=== PATIENT | female | born 1940 | race Caucasian/White ===

== ENCOUNTER 2017-03-03 11:36 | Emergency (ER) | payer OTHER ==
[~2017-03-03] VITALS: Ht 165.1 cm; Wt 68.6 kg
[~2017-03-03 11:36] MED LIST: CELE100 PO; CEPH500C3 PO; DICY1TAB26 PO; FLUO40CA PO; FURO20TA PO; HYDR10TA16 PO; PHEN12.5 PO; PHEN12.5 PR; PRIL20CA PO; SPIR50TA21 PO; SYNT88TA PO; XANA1TAB6 PO
[2017-03-03 11:38] VITALS: BP 133/66; PULSE 60; RESP 18; TEMP 97.5; O2SAT 98
--- NOTE | 2017-03-03 11:48 | PD ---
HPI Chief Complaint: Musculoskeletal Complaint Time Seen by Provider: 11:46 Travel History International Travel<30 days: No Contact w/Intl Traveler<30days: No Traveled to known affect area: No History of Present Illness HPI 76-year-old female presents the emergency department with ongoing right shoulder pain. Patient states she fell a week ago after tripping on the carpet and falling forward injuring her right shoulder. States her right shoulder pain continues which is why she is here today. Patient states it was improving and then she rolled in bed and the pain worsened in the last several days. Patient has not been taking anything for it. Patient denies neck pain, or numbness in the right arm. She does have a history of C5 6 fusion. She states the pain is localized in the shoulder joint and scapular region. Patient states she had a similar episode approximately 3-4 years ago which showed no break but she did wear a sling for approximately 6 weeks. She saw orthopedic in [facility]. Patient is allergic to codeine, and morphine. PFSH Past Medical History ?: Not Past Surgical History Cholecystectomy: Yes Hysterectomy: Yes Neurologic Surgery: Yes (RIGHT ARM NERVE SURGERY) Other Surgery: Yes (VEIN STRIPPING) Social History Alcohol Use: No Tobacco Use: No Substance Use: No Allergies-Medications (Allergen,Severity, Reaction): Coded Allergies: Codeine (Verified Allergy, Severe, ABDOMINAL PAIN, 03/03/17) Morphine (Verified Allergy, Severe, ABDOMINAL PAIN, 03/03/17) Reported Meds & Prescriptions Reported Meds & Active Scripts Active Reported Vitamin D (Cholecalciferol) 1,000 Unit Tab 1,000 Units PO DAILY Centrum Adults (Multiple Vitamins W/ Minerals) 1 Tab 1 Tab PO DAILY Ocuvite (Multiple Vitamins W/ Minerals) 1 Tab 1 Tab PO DAILY Xanax (Alprazolam) 1 Mg Tab 1 Mg PO HS PRN Calcium 500 +D (Calcium Carbonate-Cholecalciferol) 500-400 Mg-Unit Tab 1 Tab PO DAILY Spironolactone 50 Mg Tab 50 Mg PO DAILY Fluoxetine (Fluoxetine HCl) 40 Mg Cap 40 Cap PO DAILY Prilosec (Omeprazole) 20 Mg Cap 20 Mg PO DAILY Review of Systems Except as stated in HPI: all other systems reviewed are Neg General / Constitutional: No: Fever Eyes: No: Visual changes HENT: No: Headaches Cardiovascular: No: Chest Pain or Discomfort Respiratory: No: Shortness of Breath Gastrointestinal: No: Abdominal Pain Genitourinary: No: Dysuria Musculoskeletal: Positive: Arthralgias, Limited ROM, Pain Skin: No Rash Neurologic: No: Weakness Psychiatric: No: Depression Endocrine: No: Polydipsia Hematologic/Lymphatic: No: Easy Bruising Physical Exam Narrative GENERAL: Patient appears in mild distress. SKIN: Warm and dry. Normal color. Normal turgor. No ecchymosis. No rash. No other signs of trauma. HEAD: Atraumatic. Normocephalic. EYES: Pupils equal and round. No scleral icterus. No injection or drainage. ENT: No nasal bleeding or discharge. Mucous membranes pink and moist. Pharynx is normal. NECK: Trachea midline. No JVD. No bony tenderness or step-off. Range of motion is full and nontender. CARDIOVASCULAR: Regular rate and rhythm. RESPIRATORY: No accessory muscle use. Clear to auscultation. Breath sounds equal bilaterally. MUSCULOSKELETAL: Extremities without clubbing, cyanosis, or edema. No obvious deformities. The right shoulder appears normal without obvious deformity or effusion. Patient does have limited range of motion secondary to pain. Patient is able to raise the shoulder up with assistance and hold it there. No point bony tenderness with palpation. External and internal rotation is limited secondary to pain. NEUROLOGICAL: Awake and alert. No obvious cranial nerve deficits. Motor grossly within normal limits. Five out of 5 muscle strength in the arms and legs. Normal speech. PSYCHIATRIC: Appropriate mood and affect; insight and judgment normal. Data Data Last Documented VS Vital Signs Date Time Temp Pulse Resp B/P Pulse Ox O2 Delivery O2 Flow Rate FiO2 03/03/17 11:38 97.5 60 18 133/66 98 Orders Shoulder, Complete (>2vws) (03/03/17 11:53) Ice/Cold Pack (03/03/17 11:53) [facility] Medical Decision Making Medical Screen Exam Complete: Yes Emergency Medical Condition: Yes Medical Record Reviewed: Yes Differential Diagnosis Fall. Right shoulder sprain. Rotator cuff tendinitis. Bursitis. Fracture. Dislocation. Narrative Course Patient is medically stable at time of exam. X-rays of the right shoulder ordered. X-ray show no acute fracture or dislocation per radiologist. Patient will be treated for bursitis/rotator cuff tendinitis with prednisone 20 mg twice a day 7 days. Patient is also given Norflex 100 mg twice a day when necessary muscle spasm # 10. Patient is also given tramadol 50 mg one every 6 hours when necessary pain #20. Recommend heat followed by ice and follow-up with her primary care physician in the next week to ensure improvement. Patient may need orthopedic follow-up if symptoms continue or worsen. Diagnosis Primary Impression: Right shoulder tendinitis Additional Impression: Right shoulder strain Qualified Code: S46.911A - Right shoulder strain, initial encounter Referrals: Primary Care Physician 1 week Patient Instructions: Exercises for Internal and External Shoulder Rotation ( GEN), Exercises for Shoulder Abduction and Adduction (GEN), Exercises for Shoulder Flexion and Extension (ED), General Instructions, Rotator Cuff Tendinitis (ED), Shoulder Sprain (ED) Additional Instructions: X-ray show no acute fracture or dislocation per radiologist. Patient will be treated for bursitis/rotator cuff tendinitis with prednisone 20 mg twice a day 7 days. Patient is also given Norflex 100 mg twice a day when necessary muscle spasm # 10. Patient is also given tramadol 50 mg one every 6 hours when necessary pain #20. Recommend heat followed by ice and follow-up with her primary care physician in the next week to ensure improvement. Patient may need orthopedic follow-up if symptoms continue or worsen. Med/Other Pt SpecificInfo: Prescription(s) given Disposition: 01 DISCHARGE HOME Condition: Stable Yury Ellis Mar 03, 2017 11:48
[2017-03-03] MEDS ORDERED: PRIL20CA9 PO (11:56)
[2017-03-03] MEDS ORDERED: VITA100064 PO (11:56)
[2017-03-03] MEDS ORDERED: FLUO40CA PO (11:56)
[2017-03-03] MEDS ORDERED: XANA1TAB2 PO (11:56)
[2017-03-03] MEDS ORDERED: OCUVTAB PO (11:56)
[2017-03-03] MEDS ORDERED: CENTTAB8 PO (11:56)
[2017-03-03] MEDS ORDERED: CALC1TAB12 PO (11:56)
[2017-03-03] MEDS ORDERED: SPIR50TA PO (11:56)
--- NOTE | 2017-03-03 12:30 | RADHPO ---
EXAM DATE/TIME: 03/03/2017 12:05 [facility] COMPARISON: No previous studies available for comparison. INDICATIONS : Right shoulder pain; fall 1 week ago. Feels cracking and popping in shoulder. MEDICAL HISTORY : Hypertension. Gastroesophageal reflux disease. SURGICAL HISTORY : Cholecystectomy. Hysterectomy. Cervical spine surgery. Right arm nerve surtery. Vein stripping ENCOUNTER: Initial ACUITY: 1 week PAIN SCORE: 10/10 LOCATION: Right shoulder FINDINGS: Multiple view examination of the right shoulder demonstrates no evidence of fracture or dislocation. The glenohumeral and acromioclavicular joints are maintained. There is normal range of motion betwe en internal and external rotation. Bony mineralization is normal. CONCLUSION: Negative trauma study. Foster Fischer MD on March 03, 2017 at 12:27 Board Certified Radiologist. This report was verified electronically.
[2017-03-03] MEDS ORDERED: TRAM50TA PO (12:37)
[2017-03-03] MEDS ORDERED: PRED20 PO (12:37)
[2017-03-03] MEDS ORDERED: ORPH100T99 PO (12:37)
[2017-03-03] MEDS ORDERED: traMADol HCL 50 MG TAB PO ONE (13:00)
== END 2017-03-03 13:25 | disposition home or self-care (01) ==
LOC: PHEFT 11:36
DX: S46.911A Strain of unspecified muscle, fascia and tendon at shoulder and upper arm level, right arm, initial encounter (principal); W01.0XXA Fall on same level from slipping, tripping and stumbling without subsequent striking against object, initial encounter; Y93.9 Activity, unspecified; Y92.9 Unspecified place or not applicable
CPT/HCPCS: 73030; 99283

== ENCOUNTER 2017-04-09 12:16 | Emergency (ER) | payer OTHER ==
[~2017-04-09] VITALS: Ht 167.6 cm; Wt 67.7 kg
[~2017-04-09 12:16] MED LIST changes: +CALC1TAB12 PO; -CELE100 PO; +CENTTAB8 PO; -CEPH500C3 PO; -DICY1TAB26 PO; -FURO20TA PO; -HYDR10TA16 PO; +OCUVTAB PO; +ORPH100T99 PO; -PHEN12.5 PO; -PHEN12.5 PR; +PRED20 PO; -PRIL20CA PO; +PRIL20CA9 PO; +SPIR50TA PO; -SPIR50TA21 PO; -SYNT88TA PO; +TRAM50TA PO; +VITA100064 PO; +XANA1TAB2 PO; -XANA1TAB6 PO
[2017-04-09 12:26] VITALS: BP 152/79; PULSE 81; RESP 16; TEMP 98.1; O2SAT 98
[2017-04-09] MEDS ORDERED: OMEP20TA PO (12:42)
[2017-04-09] MEDS ORDERED: CALCTAB80 PO (12:42)
--- NOTE | 2017-04-09 13:28 | PD ---
HPI Chief Complaint: Fall Time Seen by Provider: 12:41 Travel History International Travel<30 days: No Contact w/Intl Traveler<30days: No Traveled to known affect area: No History of Present Illness HPI This is a 77 year-old woman who presents emergent complaining of a trip and fall about 10 days ago. States she tripped over a cord. No LOC. She states afterwards girl little bit before she felt right. Since in she's had pain in her left shoulder, and she's had worsening headache, with mental slowing, some dizziness, and she feels like her hearing in her right ear is in quite right. She also fallen a week or so before this. States she just really hasn't felt well over the past several weeks. No other recent illness or injury. No other specific symptoms. No other complaints. History Past Medical History Narrative Medical Hypertension Depression/anxiety Menopausal: Yes Social History Alcohol Use: No Tobacco Use: No Allergies-Medications (Allergen,Severity, Reaction): Coded Allergies: Codeine (Verified Allergy, Severe, ABDOMINAL PAIN, 04/09/17) Morphine (Verified Allergy, Severe, ABDOMINAL PAIN, 04/09/17) Reported Meds & Prescriptions Reported Meds & Active Scripts Active Reported Calcium 1000 + D (Calcium Carbonate-Cholecalciferol) 1,000-800 Mg-Unit Tab 1 Tab PO DAILY Omeprazole 20 Mg Tab 20 Mg PO DAILY Vitamin D (Cholecalciferol) 1,000 Unit Tab 1,000 Units PO DAILY Ocuvite (Multiple Vitamins W/ Minerals) 1 Tab 1 Tab PO DAILY Xanax (Alprazolam) 1 Mg Tab 1 Mg PO HS PRN Spironolactone 50 Mg Tab 1.5 Tab PO DAILY Fluoxetine (Fluoxetine HCl) 40 Mg Cap 40 Cap PO DAILY Review of Systems Except as stated in HPI: all other systems reviewed are Neg Physical Exam Narrative GENERAL: Well-appearing 77 year-old woman, no acute distress. SKIN: Focused skin assessment warm/dry. HEAD: Atraumatic. Normocephalic. EYES: Pupils equal and round. No scleral icterus. No injection or drainage. ENT: No nasal bleeding or discharge. Mucous membranes pink and moist. There is a healing contusion over the left brow. TMs are normal. NECK: Trachea midline. No midline tenderness. Full range of motion. CARDIOVASCULAR: Regular rate and rhythm. No murmur appreciated. RESPIRATORY: No accessory muscle use. Clear to auscultation. Breath sounds equal bilaterally. GASTROINTESTINAL: Abdomen soft, non-tender, nondistended. Hepatic and splenic margins not palpable. MUSCULOSKELETAL: No obvious deformities. No edema. She has limited range of motion the right shoulder from previous injuries. She has full range of motion of the left shoulder. No obvious bony tenderness. She moves his shoulder freely. NEUROLOGICAL: Awake and alert. No obvious cranial nerve deficits. Motor grossly within normal limits. Normal speech. Data Data Last Documented VS Vital Signs Date Time Temp Pulse Resp B/P Pulse Ox O2 Delivery O2 Flow Rate FiO2 04/09/17 12:26 98.1 81 16 152/[address] Brain W/O Iv Contrast(Rout) (04/09/17 ) Complete Blood Count With Diff (04/09/17 13:09) Comprehensive Metabolic Panel (04/09/17 13:09) Urinalysis - C+S If Indicated (04/09/17 13:09) Iv Access Insert/Monitor (04/09/17 13:09) Acetaminophen (Tylenol) (04/09/17 14:00) Labs Laboratory Tests Test 04/09/17 04/09/17 13:29 15:55 White Blood Count 10.0 TH/MM3 Red Blood Count 4.71 MIL/MM3 Hemoglobin 14.2 GM/DL Hematocrit 41.7 % Mean Corpuscular Volume 88.5 FL Mean Corpuscular Hemoglobin 30.1 PG Mean Corpuscular Hemoglobin 34.0 % Concent Red Cell Distribution Width 12.5 % Platelet Count 327 TH/MM3 Mean Platelet Volume 8.5 FL Neutrophils (%) (Auto) 76.4 % Lymphocytes (%) (Auto) 16.2 % Monocytes (%) (Auto) 6.1 % Eosinophils (%) (Auto) 0.8 % Basophils (%) (Auto) 0.5 % Neutrophils # (Auto) 7.7 TH/MM3 Lymphocytes # (Auto) 1.6 TH/MM3 Monocytes # (Auto) 0.6 TH/MM3 Eosinophils # (Auto) 0.1 TH/MM3 Basophils # (Auto) 0.0 TH/MM3 CBC Comment DIFF FINAL Differential Comment Sodium Level 140 MEQ/L Potassium Level 3.8 MEQ/L Chloride Level 105 MEQ/L Carbon Dioxide Level 29.4 MEQ/L Anion Gap 6 MEQ/L Blood Urea Nitrogen 31 MG/DL Creatinine 1.20 MG/DL Estimat Glomerular Filtration 44 ML/MIN Rate Random Glucose 119 MG/DL Calcium Level 10.3 MG/DL Total Bilirubin 0.4 MG/DL Aspartate Amino Transf 22 U/L (AST/SGOT) Alanine Aminotransferase 36 U/L (ALT/SGPT) Alkaline Phosphatase 65 U/L Total Protein 7.8 GM/DL Albumin 3.9 GM/DL Urine Color YELLOW Urine Turbidity CLEAR Urine pH 6.0 Urine Specific [place] 1.022 Urine Protein NEG mg/dL Urine Glucose (UA) NEG mg/dL Urine Ketones NEG mg/dL Urine Occult Blood NEG Urine Nitrite NEG Urine Bilirubin NEG Urine Leukocyte Esterase SMALL Urine RBC 0-3 /hpf Urine WBC 3-5 /hpf Urine Squamous Epithelial 0-5 /hpf Cells Urine Amorphous Sediment FEW Urine Mucus FEW /lpf Microscopic Urinalysis Comment CULT NOT INDICATED MDM Medical Decision Making Medical Screen Exam Complete: Yes Emergency Medical Condition: Yes Interpretation(s) LABS: CBC is unremarkable. CMP is unremarkable. BUN and creatinine are elevated. UA negative. CT head: No acute findings. Differential Diagnosis Concussion, ICH or subdural, infection, electrolyte abnormality, other Narrative Course Medical decision making 77 year-old woman, Atrovent fall about 10 days ago, with persistent dizziness and feeling poorly. She had some left shoulder pain. I don't think she broke it. I don't think she needs x-rays. We'll check a CT of her head. She had a previous fall before this and overall hasn't been feeling well for the past several days. She has frequent urination. We'll check labs and urine. Reassess. Diagnosis Primary Impression: Shoulder pain Additional Impression: Headache Additional Instructions: Use caution to prevent falls. Return to the emergency department any new or worsening symptoms. Disposition: 01 DISCHARGE HOME Condition: Stable Omar Barrientos MD Apr 09, 2017 13:28
[2017-04-09 13:33] LABS: AUTOMATED NEUTROPHIL # 7.7 TH/MM3 (1.8-7.7); BASOPHIL % 0.5 % (0.0-2.0); EOSINOPHIL # 0.1 TH/MM3 (0-0.4); EOSINOPHIL % 0.8 % (0.0-4.0); HEMATOCRIT 41.7 % (35.0-46.0); LYMPH % 16.2 % (9.0-44.0); LYMPHOCYTE # 1.6 TH/MM3 (1.0-4.8); MEAN CELL VOLUME 88.5 FL (80.0-100.0); MEAN CORPUSCULAR HEMOGLOBIN 30.1 PG (27.0-34.0); MONO % 6.1 % (0.0-8.0); NEUT % 76.4 % (16.0-70.0); PLATELET COUNT 327 TH/MM3 (150-450); RED BLOOD COUNT 4.71 MIL/MM3 (4.00-5.30); RED CELL DISTRIBUTION WIDTH 12.5 % (11.6-17.2)
[2017-04-09 13:39] LABS: HEMO FLAGS DIFF FINAL
[2017-04-09 13:41] LABS: CHLORIDE 105 MEQ/L (98-107); POTASSIUM 3.8 MEQ/L (3.5-5.1); SODIUM (NA) 140 MEQ/L (136-145)
[2017-04-09 13:45] LABS: ANION GAP 6 MEQ/L (5-15); BICARBONATE 29.4 MEQ/L (21.0-32.0); BLOOD UREA NITROGEN 31 MG/DL (7-18)
[2017-04-09 13:48] LABS: ALT (GPT) 36 U/L (10-53); AST (GOT) 22 U/L (15-37); GLOMERULAR FILTRATION RATE 44 ML/MIN (>89)
[2017-04-09 13:50] LABS: TOTAL BILIRUBIN ADULT 0.4 MG/DL (0.2-1.0)
[2017-04-09 13:51] LABS: ALKALINE PHOSPHATASE 65 U/L (45-117)
[2017-04-09] MEDS ORDERED: ACETAMINOPHEN 325 MG TAB PO ONE (14:00)
--- NOTE | 2017-04-09 15:34 | RADRPT ---
EXAM DATE/TIME: 04/09/2017 14:48 [facility] COMPARISON: No previous studies available for comparison. INDICATIONS : Headaches and dizziness, fall 10 days ago. RADIATION DOSE: 31.82 CTDIvol (mGy) MEDICAL HISTORY : None SURGICAL HISTORY : None. ENCOUNTER: Initial ACUITY: 1 week PAIN SCALE: 3/10 LOCATION: TECHNIQUE: Multiple contiguous axial images were obtained of the head. Using automated exposure control and adj ustment of the mA and/or kV according to patient size, radiation dose was kept as low as reasonably a chievable to obtain optimal diagnostic quality images. FINDINGS: CEREBRUM: The ventricles are normal for age. No evidence of midline shift, mass lesion, hemorrhage or acute in farction. No extra-axial fluid collections are seen. POSTERIOR FOSSA: The cerebellum and brainstem are intact. The 4th ventricle is midline. The cerebellopontine angle i s unremarkable. EXTRACRANIAL: The visualized portion of the orbits is intact. SKULL: The calvaria is intact. No evidence of skull fracture. CONCLUSION: No acute intracranial findings. Mynor Spence MD on April 09, 2017 at 15:31 Board Certified Radiologist. This report was verified electronically.
[2017-04-09 16:01] LABS: BLOOD, URINE NEG (NEG); GLUCOSE,URINE NEG (NEG); KETONE, URINE NEG (NEG); NITRITE,URINE NEG (NEG)
[2017-04-09 16:34] LABS: URINE COLOR YELLOW (YELLW/STRAW)
[2017-04-09 16:38] LABS: RBC, URINE 0-3 /hpf (0-3); SQUAMOUS EPITHELIAL CELL URINE 0-5 /hpf (0-5)
[2017-04-09 16:39] LABS: COMMENT (UR) CULT NOT INDICATED; CULTURE IF INDICATED CULT NOT INDICATED; MUCUS URINE FEW /lpf (OCC)
[2017-04-09 16:57] VITALS: BP 136/72
== END 2017-04-09 17:03 | disposition home or self-care (01) ==
LOC: PHED 12:16
DX: M25.512 Pain in left shoulder (principal); R51 Headache; R42 Dizziness and giddiness; W18.09XA Striking against other object with subsequent fall, initial encounter
CPT/HCPCS: 70450; 80053; 81001; 85025

== ENCOUNTER 2017-08-09 21:55 | Emergency (ER) | payer OTHER ==
[~2017-08-09] VITALS: Ht 165.1 cm; Wt 66.0 kg
[~2017-08-09 21:55] MED LIST changes: -CALC1TAB12 PO; +CALCTAB80 PO; +OMEP20TA PO; -ORPH100T99 PO; -PRED20 PO; -PRIL20CA9 PO; -TRAM50TA PO
[2017-08-09 21:58] VITALS: BP 147/64; PULSE 67; RESP 16; TEMP 97.9; O2SAT 99
[2017-08-09] MEDS ORDERED: CENTCHW4 CHEW (22:22)
--- NOTE | 2017-08-09 22:35 | PD ---
HPI Chief Complaint: Eye Problems/Injury Time Seen by Provider: 22:23 Travel History International Travel<30 days: No Contact w/Intl Traveler<30days: No Traveled to known affect area: No History of Present Illness HPI 77-year-old female presents emergency department for evaluation of left eye irritation after accidentally putting Debrox into her left eye at approximately 8 PM.. She reports she irrigated the eye immediately for 10 minutes. The irritation persisted prompting her visit to the emergency department. Visual acuity left eye 20/25, right eye 20/30, both eyes 20/25. symptom severity mild. PFSH Past Medical History Anxiety: Yes Depression: Yes Diminished Hearing: No GERD: Yes Hypertension: Yes Immunizations Current: Yes Tetanus Vaccination: Unknown Influenza Vaccination: Yes ?: Not Menopausal: Yes Past Surgical History Cholecystectomy: Yes Hysterectomy: Yes Neurologic Surgery: Yes (RIGHT ARM NERVE SURGERY) Other Surgery: Yes (VEIN STRIPPING) Social History Alcohol Use: No Tobacco Use: No Substance Use: No Allergies-Medications (Allergen,Severity, Reaction): Coded Allergies: codeine (Unverified Allergy, Severe, ABDOMINAL PAIN, 08/09/17) morphine (Unverified Allergy, Severe, ABDOMINAL PAIN, 08/09/17) Reported Meds & Prescriptions Reported Meds & Active Scripts Active Reported Centrum (Multiple Vitamins W/ Minerals) 1 Chew 1 Tab CHEW DAILY Calcium 1000 + D (Calcium Carbonate-Cholecalciferol) 1,000-800 Mg-Unit Tab 1 Tab PO DAILY Omeprazole 20 Mg Tab 20 Mg PO DAILY Vitamin D3 (Cholecalciferol) 1,000 Unit Tab 5,000 Units PO DAILY Ocuvite (Multiple Vitamins W/ Minerals) 1 Tab 1 Tab PO DAILY Xanax (Alprazolam) 1 Mg Tab 1 Mg PO HS PRN Spironolactone 50 Mg Tab 1.5 Tab PO DAILY Fluoxetine (Fluoxetine HCl) 40 Mg Cap 40 Cap PO DAILY Review of Systems Except as stated in HPI: all other systems reviewed are Neg Physical Exam Narrative GENERAL: Alert, well-appearing female in no acute distress SKIN: Warm and dry. HEAD: Normocephalic. EYES: No scleral icterus. mild injection of the Left eye. EOMI. no fluorescein dye uptake. Visual acuity left 20/25, right 20/30, both 20/25 NECK: Supple, trachea midline. No JVD or lymphadenopathy. CARDIOVASCULAR: Regular rate and rhythm without murmurs, gallops, or rubs. RESPIRATORY: Breath sounds equal bilaterally. No accessory muscle use. Data Data Last Documented VS Vital Signs Date Time Temp Pulse Resp B/P (MAP) Pulse Ox O2 Delivery O2 Flow Rate FiO2 08/09/17 21:58 97.9 67 16 147/64 (91) 99 MDM Medical Decision Making Medical Screen Exam Complete: Yes Emergency Medical Condition: Yes Differential Diagnosis Chemical burn, corneal abrasion, corneal ulcer Narrative Course 77-year-old female presents emergency department for evaluation of left eye irritation after accidentally putting Debrox into her left eye at approximately 8 PM.. She reports she irrigated the eye immediately for 10 minutes. The irritation persisted prompting her visit to the emergency department. Visual acuity left eye 20/25, right eye 20/30, both eyes 20/25. Visual exam patient has a round and reactive pupil. There is no fluorescein dye uptake. Extraocular movement intact. Visual jacinto intact. This is mild contact irritation. I was appropriately irrigated. 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 Patient verbalizes understanding and agrees to plan Diagnosis Primary Impression: Chemical exposure of eye Referrals: Metrology Specialist Additional Instructions: Follow-up with the eye doctor or your primary doctor for recheck. Return to emergency department if he developed new or worsening symptoms. Disposition: 01 DISCHARGE HOME Condition: Stable Claire Elder Aug 09, 2017 22:35
== END 2017-08-09 22:42 | disposition home or self-care (01) ==
LOC: PHEFT 21:55
DX: H57.8 Other specified disorders of eye and adnexa (principal); Z77.098 Contact with and (suspected) exposure to other hazardous, chiefly nonmedicinal, chemicals; I10 Essential (primary) hypertension; K21.9 Gastro-esophageal reflux disease without esophagitis
CPT/HCPCS: 99281